=== PATIENT | female | born 1975 | race Caucasian/White ===

== ENCOUNTER → 2016-09-10 | Outpatient (CLI) | payer OTHER ==
[~2016-09-10] MED LIST: ATEN-173 PO; CLR10 PO; CYCL10TA6 PO; DULO60CA44 PO; Ferrous Sulfate PO; PRENTAB26 PO
== END | disposition home or self-care (01) ==
LOC: C.LABSPEC 15:06
PROVIDERS: ATTEND Family Medicine
DX: J02.9 Acute pharyngitis, unspecified (principal)

== ENCOUNTER → 2016-10-23 | Outpatient (CLI) | payer OTHER ==
--- NOTE | 2016-10-23 17:46 | ECHOCARDIOGRAM REPORT ---
*NOTICE TO RECEIVING REPUBLICAN AGENCY This information is strictly Confidential and protected under [place] law. [place] law prohibits you from making any further disclosure of this information unless further disclosure is expressly permitted by the written consent of the person to whom it pertains or is authorized by law. A general authorization for the release of medical or other information is not sufficient for this purpose. Hospital accepts no responsibility if the information is made available to any other person, INCLUDING THE PATIENT. Interpretation Summary * Name: SUZANNE SANTACRUZ Study Date: 10/23/2016 01:29 PM BP: 131/70 mmHg * Patient Location: [facility] HR: 61 * : 1975 (M/d/yyyy) Gender: Female Height: 66 in * Age: 41 yrs Ethnicity: CA Weight: 185 lb * Ordering Physician: Gallo Clayton * Referring Physician: Gallo Clayton * Performed By: Radha Arredondo RDCS * * Reason For Study: Hypertrophic cardiomyopathy * BSA: 1.9 m2 * Compared to prior study, there is no significant change. * -- Conclusions -- * The left ventricle is normal in size. * There is severe asymetric left ventricular hypertrophy of the apex and septum. * The echo findings are consistent with hypertrophic cardiomyopathy. * Ejection Fraction = >70 %. * The left ventricular wall motion is normal. * Echo findings are not consistent with left ventricular outflow obstruction. * Mild chordal systolic anterior motion of the anterior subvalvular mitral apparatus is present * There is trace mitral regurgitation. Procedure Details * A complete two-dimensional transthoracic echocardiogram was performed (2D, M-mode, Doppler and color flow Doppler). Left Ventricle * The left ventricle is normal in size. * There is severe asymetric left ventricular hypertrophy of the apex and septum. * The echo findings are consistent with hypertrophic cardiomyopathy. * Echo findings are not consistent with left ventricular outflow obstruction. * Ejection Fraction = >70 %. * Left ventricular systolic function is normal. * The left ventricular wall motion is normal. Right Ventricle * The right ventricle is normal in size and function. Atria * The left atrial size is normal. * Right atrial size is normal. * No ASD detected; PFO is not assessed. Mitral Valve * The mitral valve anatomy is normal. * Mild chordal systolic anterior motion of the anterior subvalvular mitral apparatus is present * There is no mitral valve stenosis. * There is trace mitral regurgitation. Tricuspid Valve * The tricuspid valve is normal. * There is no tricuspid stenosis. * There is trace tricuspid regurgitation. * Doppler findings do not suggest pulmonary hypertension. Aortic Valve * The aortic valve is trileaflet. * No hemodynamically significant valvular aortic stenosis. * No aortic regurgitation is present. Pulmonic Valve * The pulmonic valve is not well visualized. Great Vessels * The aortic root is normal size. Pericardium/Pleural * There is no pericardial effusion. Great Vessels * Normal inferior vena cava diameter and respiratory variation suggests normal central venous pressure. MMode 2D Measurements and Calculations IVSd 0.80 cm LVIDd 3.8 cm LVIDs 2.0 cm LVPWd 0.93 cm IVS/LVPW 0.86 FS 47.7 % EDV(Teich) 61.9 ml ESV(Teich) 12.5 ml EF(Teich) 79.8 % EDV(cubed) 54.8 ml ESV(cubed) 7.8 ml EF(cubed) 85.7 % LV mass(C)d 95.1 grams LV mass(C)dI 49.1 grams/m\S\2 SV(Teich) 49.4 ml SI(Teich) 25.5 ml/m\S\2 SV(cubed) 47.0 ml SI(cubed) 24.3 ml/m\S\2 Ao root diam 2.8 cm Ao root area 6.0 cm\S\2 ACS 2.0 cm LA dimension 2.4 cm LA/Ao 0.85 LVOT diam 2.0 cm LVOT area 3.0 cm\S\2 LVAd ap4 24.5 cm\S\2 LVLd ap4 8.3 cm EDV(MOD-sp4) 64.1 ml EDV(sp4-el) 61.3 ml LVAs ap4 9.5 cm\S\2 LVLs ap4 6.6 cm ESV(MOD-sp4) 15.1 ml ESV(sp4-el) 11.6 ml EF(MOD-sp4) 76.5 % EF(sp4-el) 81.1 % LVAd ap2 24.4 cm\S\2 LVLd ap2 8.2 cm EDV(MOD-sp2) 65.5 ml EDV(sp2-el) 61.6 ml LVAs ap2 11.0 cm\S\2 LVLs ap2 6.2 cm ESV(MOD-sp2) 19.3 ml ESV(sp2-el) 16.4 ml EF(MOD-sp2) 70.5 % EF(sp2-el) 73.3 % LVLd %diff -1.19 % EDV(MOD-bp) 65.4 ml LVLs %diff -5.85 % ESV(MOD-bp) 17.1 ml EF(MOD-bp) 73.8 % SV(MOD-sp4) 49.0 ml SI(MOD-sp4) 25.3 ml/m\S\2 SV(MOD-sp2) 46.2 ml SI(MOD-sp2) 23.9 ml/m\S\2 SV(MOD-bp) 48.3 ml SI(MOD-bp) 25.0 ml/m\S\2 SV(sp4-el) 49.7 ml SI(sp4-el) 25.7 ml/m\S\2 SV(sp2-el) 45.2 ml SI(sp2-el) 23.4 ml/m\S\2 Doppler Measurements and Calculations MV E max stef 69.9 cm/sec MV A max stef 51.8 cm/sec MV E/A 1.4 MV dec time 0.22 sec Ao V2 max 170.6 cm/sec Ao max PG 11.6 mmHg Ao max PG (full) 4.7 mmHg SAUL(V,A) 2.3 cm\S\2 SAUL(V,D) 2.3 cm\S\2 LV V1 max PG 6.9 mmHg LV V1 max 131.6 cm/sec PA V2 max 118.1 cm/sec PA max PG 5.6 mmHg PA acc slope 587.8 cm/sec\S\2 PA acc time 0.16 sec TR max stef 220.1 cm/sec PA pr(Accel) 7.7 mmHg
== END | disposition home or self-care (01) ==
LOC: C.CPL 12:58
PROVIDERS: ATTEND Internal Medicine Cardiovascular Disease
DX: I42.2 Other hypertrophic cardiomyopathy (principal); D68.0 Von Willebrand disease

== ENCOUNTER → 2016-11-04 | Outpatient (CLI) | payer OTHER ==
--- NOTE | 2016-11-04 15:09 | DIAGNOSTIC IMAGING REPORT ---
EXAMINATION: PELVIC ULTRASOUND CLINICAL HISTORY: PELVIC PAIN PAIN COMPARISON STUDY: None FINDINGS: The uterus measured 7.2 cm. The endometrial stripe measured 5 mm. The right ovary measured 2.5 cm with normal vascular flow. 2 cm septated cyst.. The left ovary measured 2.3 cm maximum dimension. Normal vascular flow. There is no ultrasonographic evidence of ovarian torsion. It should be noted that ovarian torsion can be present with normal Doppler ultrasonographic findings. There was no evidence of pathologic free pelvic fluid. IMPRESSION: 2.0 cm complex and a septated right ovarian cyst. Otherwise negative study Electronically signed by: Jagdish Escobedo M.D. 11/04/2016 3:07 PM Dictated Date/Time: 11/04/2016 3:06 PM
[2016-11-04 17:28] LABS: BASO % 0.2 %; BASO ABS # 0.02 K/uL (0-0.2); COMPLETE YES; EOS % 0.6 %; HEMATOCRIT 38.4 % (37-47); IG% 0.1 %; LYMPH % 35.4 %; LYMPH ABS # 2.91 K/uL (1.2-3.4); MEAN CELL VOLUME 87.3 fL (80-100); MEAN CORPUSCULAR HEMOGLOBIN 28.4 pg (25-34); MEAN CORPUSCULAR HGB CONC 32.6 g/dl (32-36); MEAN PLATELET VOLUME 11.2 fL (7.4-10.4); MONO % 6.9 %; NEUT % 56.8 %; PLATELET COUNT 256 K/uL (130-400); WHITE BLOOD COUNT 8.21 K/uL (4.8-10.8)
[2016-11-04 17:36] LABS: ALT/SGPT 23 U/L (12-78); AMYLASE 59 U/L (25-115); BLOOD UREA NITROGEN 14 mg/dl (7-18); BUN/CREATININE RATIO 14.2 (10-20); CALCIUM 8.9 mg/dl (8.5-10.1); CARBON DIOXIDE 28 mmol/L (21-32); CHLORIDE 105 mmol/L (98-107); CREATININE 0.99 mg/dl (0.60-1.20); GLUCOSE 106 mg/dl (70-99); POTASSIUM 3.7 mmol/L (3.5-5.1); SODIUM 139 mmol/L (136-145)
[2016-11-04 17:48] LABS: ALB/GLOB RATIO 0.9 (0.9-2); ALKALINE PHOSPHATASE 44 U/L (45-117); AST/SGOT 19 U/L (15-37)
== END | disposition home or self-care (01) ==
LOC: C.ULTRBC 14:18
PROVIDERS: ATTEND Family Medicine
DX: R10.2 Pelvic and perineal pain (principal); R10.84 Generalized abdominal pain; N83.201 Unspecified ovarian cyst, right side

== ENCOUNTER → 2017-01-01 | Outpatient (CLI) | payer OTHER ==
--- NOTE | 2017-01-01 12:22 | DIAGNOSTIC IMAGING REPORT ---
RIGHT FOOT MIN 3 VIEWS ROUTINE CLINICAL HISTORY: 41 years-old Female presenting with PAIN IN RIGHT FOOT Right. TECHNIQUE: Frontal, oblique, and lateral views of the right foot were obtained. COMPARISON: None. FINDINGS: No acute fracture or malalignment. No significant degenerative change. Os peroneum noted. No soft tissue abnormality. IMPRESSION: No acute osseous injury of the right foot. Electronically signed by: Kaleb Valencia M.D. 01/01/2017 12:21 PM Dictated Date/Time: 01/01/2017 12:20 PM
== END | disposition home or self-care (01) ==
LOC: C.RADBC 11:53
PROVIDERS: ATTEND Family Medicine
DX: M79.671 Pain in right foot (principal)

== ENCOUNTER → 2017-01-20 | Outpatient (CLI) | payer OTHER ==
--- NOTE | 2017-01-20 10:59 | DIAGNOSTIC IMAGING REPORT ---
C-SPINE ROUTINE 4 OR 5 VIEWS HISTORY: Pain M50.13 COMPARISON: None. FINDINGS: The cervical spine is visualized from C1 through the superior endplate of T1. There is no fracture. Mild reversal of normal cervical curvature possibly due to muscular spasm mild degenerative disc space change C5-C6 Prevertebral soft tissues and the atlantodens interval are intact. IMPRESSION: 1. Muscle spasm. 2. Mild degenerative disc change C5-C6. 3. Remainder the study is negative The above report was generated using voice recognition software. It may contain grammatical, syntax or spelling errors. Electronically signed by: Jagdish Escobedo M.D. 01/20/2017 10:57 AM Dictated Date/Time: 01/20/2017 10:57 AM
== END | disposition home or self-care (01) ==
LOC: C.RAD1850 10:40
PROVIDERS: ATTEND Chiropractor
DX: M50.13 Cervical disc disorder with radiculopathy, cervicothoracic region (principal); M62.838 Other muscle spasm

== ENCOUNTER → 2017-03-31 | Outpatient (CLI) | payer OTHER ==
--- NOTE | 2017-03-31 18:45 | DIAGNOSTIC IMAGING REPORT ---
CERVICAL WITHOUT CONTRAST HISTORY: 41 years-old Female CERVICAL PAIN acute neck pain with numbness of the right hand and fingers COMPARISON: Cervical spine radiographs 01/20/2017, MRI cervical spine 08/08/2012 TECHNIQUE: Multiplanar multisequence MRI the cervical spine was obtained without contrast. FINDINGS: The large [id number] fish pitcher localizer images demonstrate no gross abnormality of the imaged neck or thorax. Mid posterior fossa structures are unremarkable. Signal within the cord is within normal limits. There is no focal bone marrow or soft tissue edema. No acute fracture or subluxation. There is mild straightening of the normal cervical lordosis. Discogenic changes of the mid to lower cervical spine as below. C2-C3: No significant central canal or foraminal narrowing. Unchanged. C3-C4: Minimal disc desiccation with small broad-based posterior disc bulge. No central canal or foraminal narrowing. Generally unchanged from comparison. C4-C5: No significant central canal or foraminal narrowing. Unchanged. C5-C6: Mild intervertebral disc space narrowing with right paracentral broad-based disc protrusion and annular fissure redemonstrated causing mild right lateral recess stenosis. No significant central canal or foraminal narrowing. These findings appear unchanged. C6-C7: Mild intervertebral disc space narrowing with broad-based posterior disc bulge and annular fissure favoring the right paracentral region right lateral recess flattens the ventral thecal sac without significant central canal narrowing. There is however mild right foraminal stenosis which has slightly progressed. C7-T1: No significant central canal or foraminal narrowing. Unchanged. Imaged upper thoracic levels are unremarkable. IMPRESSION: 1. Mild intervertebral disc space narrowing with broad-based posterior disc bulge favoring the right paracentral region and right lateral recess at C6-C7 is noted causing mild right foraminal narrowing. 2. Mild intervertebral disc space narrowing with right paracentral broad-based disc protrusion and annular fissure at C5-C6 causes mild right lateral recess stenosis. 3. Mild straightening of the cervical lordosis may be secondary to patient positioning or paraspinal muscle spasm. 4. No focal bone marrow edema or fracture. The above report was generated using voice recognition software. It may contain grammatical, syntax or spelling errors. Electronically signed by: Mg Clarke M.D. 03/31/2017 6:44 PM Dictated Date/Time: 03/31/2017 5:17 PM
== END | disposition home or self-care (01) ==
LOC: C.MRIBC 16:20
PROVIDERS: ATTEND Family Medicine
DX: M50.20 Other cervical disc displacement, unspecified cervical region (principal); M48.02 Spinal stenosis, cervical region

== ENCOUNTER → 2017-06-16 | Outpatient (CLI) | payer OTHER | END | disposition home or self-care (01) | LOC: C.PAPS 10:00 | PROVIDERS: ATTEND Obstetrics & Gynecology | DX: Z12.4 Encounter for screening for malignant neoplasm of cervix (principal) ==

== ENCOUNTER → 2017-07-06 | Outpatient (CLI) | payer OTHER ==
--- NOTE | 2017-07-06 17:03 | DIAGNOSTIC IMAGING REPORT ---
L-SPINE MIN 4 VIEWS ROUTINE HISTORY: Pain. Neuropathy. M54.16 Lumbar [id number] COMPARISON: None. FINDINGS: There is no fracture. No subluxation. Disc spaces are preserved. Moderate degenerative disc change T11-T12. IMPRESSION: No fracture or subluxation within the lumbar spine. Moderate degenerative disc change T11-T12. The above report was generated using voice recognition software. It may contain grammatical, syntax or spelling errors. Electronically signed by: Jagdish Escobedo M.D. 07/06/2017 5:02 PM Dictated Date/Time: 07/06/2017 5:00 PM
== END | disposition home or self-care (01) ==
LOC: C.RAD1850 16:49
PROVIDERS: ATTEND Psychiatry & Neurology Neurology
DX: M54.16 Radiculopathy, lumbar region (principal); M51.34 Other intervertebral disc degeneration, thoracic region